=== PATIENT | female | born 1985 | race Hispanic/Latino ===

== ENCOUNTER 2022-02-23 00:02 | Emergency (ER) | payer MEDICAID ==
[~2022-02-23] VITALS: Ht 152.4 cm; Wt 61.2 kg
[~2022-02-23 00:02] MED LIST: ERGO500093 PO; PANT40TA54 PO; TAMS-1 PO; TRAM50TA4 PO
[2022-02-23 00:50] VITALS: BP 132/83
[2022-02-23 00:56] LABS: APPEARANCE,URINE CLOUDY (CLEAR); BILIRUBIN,URINE Negative (NEGATIVE); COLOR,URINE Yellow (YELLOW); GLUCOSE, URINE (UA) Negative (NEGATIVE); KETONES,URINE Trace mg/dL (NEGATIVE); LEUKOCYTE ESTERASE ,URINE Large (NEGATIVE); NITRATE,URINE Positive (NEGATIVE); OCCULT BLOOD,URINE Moderate (NEGATIVE); PH,URINE 6.5 (5.0-8.0); PROTEIN,URINE POS 2+ mg/dL (NEGATIVE); UROBILINOGEN,URINE 0.2 mg/dL (0.2-1.0)
[2022-02-23 01:00] LABS: HCG,QUAL RESULT NEGATIVE (NEGATIVE)
[2022-02-23 01:07] LABS: BASOPHILS % (AUTO) 0.9 % (0.0-5.0); EOSINOPHILS % (AUTO) 2.6 % (0.0-8.0); HEMATOCRIT 37.3 % (36-48); LYMPHOCYTES % (AUTO) 31.6 % (21.0-51.0); MEAN CORPUSCULAR HEMOGLOBIN 26.3 pg (27.0-33.0); MEAN CORPUSCULAR VOLUME 79.9 fL (79-99); MONOCYTES % (AUTO) 5.3 % (3.0-13.0); NEUTROPHILS % (AUTO) 59.3 % (40.0-77.0); PLATELET COUNT (AUTO) 436 K/uL (130-400); RED BLOOD CELL COUNT(AUTO) 4.67 MIL/uL (4.00-5.50); RED CELL DISTRIBUTION WIDTH 16.4 % (11.0-15.5); WHITE BLOOD COUNT (AUTO) 11.4 K/uL (4.8-10.8)
[2022-02-23 01:09] LABS: BACTERIA,URINE Many /HPF (None Seen); MUCUS,URINE Few LPF (None Seen); STARCH,URINE Few /LPF (None Seen); WBC,URINE 51-100 /HPF (0-1)
[2022-02-23 01:15] LABS: CREATININE 0.7 mg/dL (0.5-1.5); POTASSIUM 3.5 mmol/L (3.5-5.1)
[2022-02-23] MEDS ORDERED: CEFTRIAXONE 1G VIAL IVP ONE (02:00)
[2022-02-23] MEDS ORDERED: CEPH500B PO (02:06)
[2022-02-23] MEDS ORDERED: TRAM50TA4 PO (02:06)
== END 2022-02-23 02:48 | disposition home or self-care (01) ==
LOC: EDH 00:02
DX: N39.0 Urinary tract infection, site not specified (principal); Z79.899 Other long term (current) drug therapy; Z98.890 Other specified postprocedural states
CPT/HCPCS: 36415; 80048; 81001; 81025; 85025; 87077; 87088; 87186; 96374; 99283; J0696

== ENCOUNTER 2022-03-05 09:19 | Day surgery (SDC) | payer MEDICAID ==
[~2022-03-05 09:19] MED LIST changes: +CEPH500B PO
[2022-03-05] MEDS ORDERED: IOHEXOL-350 50ML VIAL IV ONE (09:27)
== END 2022-03-05 14:00 | disposition home or self-care (01) ==
LOC: RAH 09:19 → DAH 14:00
PROVIDERS: ATTEND Urology
DX: N13.0 Hydronephrosis with ureteropelvic junction obstruction (principal); Z79.01 Long term (current) use of anticoagulants; Z98.890 Other specified postprocedural states
CPT/HCPCS: 36415; 50431; 71045; 80053; 81001; 84703; 85027; 85610; 85730; 87077; 87088; 87186; 87635; 93005; C9803; Q9967; 74425

== ENCOUNTER → 2023-08-24 | Outpatient (CLI) | payer MEDICAID ==
[~2023-08-24] VITALS: Ht 152.4 cm; Wt 67.8 kg
[2023-08-24 12:58] VITALS: BP 146/89; PULSE 61; RESP 14
== END | disposition home or self-care (01) ==
LOC: DAH 10:00 → EDSTATUS 08-29 10:00
PROVIDERS: ATTEND Surgery
DX: L94.0 Localized scleroderma [morphea] (principal)
CPT/HCPCS: 81025; A6260

== ENCOUNTER 2023-09-19 07:33 | Day surgery (SDC) | payer MEDICAID ==
[2023-09-15 13:16] VITALS: BP 150/84; PULSE 71; RESP 15
[~2023-09-19] VITALS: Ht 152.4 cm; Wt 67.2 kg
[2023-09-19] VITALS (16 sets, daily range): BP systolic 94–156; BP diastolic 51–96; PULSE 56–107; RESP 9–18
[2023-09-19] MEDS ORDERED: LACTATED RINGERS 1000ML 1,000 ML IV ONE (07:58)
[2023-09-19] MEDS ORDERED: PROPOFOL 10 MG/ML 20ML VIAL IV ONE (08:13)
[2023-09-19] MEDS ORDERED: LIDOCAINE HCL MPF 1% 5ML VIAL ONE (08:13)
[2023-09-19] MEDS ORDERED: MIDAZOLAM HCL 1 MG/ML 2ML VIAL ONE (08:14)
[2023-09-19] MEDS ORDERED: FENTANYL CITRATE PF 50 MCG/1 ML 2ML VIAL ONE (08:14)
[2023-09-19] MEDS ORDERED: ONDANSETRON 4MG INJ ONE (08:14)
[2023-09-19] MEDS: CEFAZOLIN SODIUM 2 GM VIAL ONE ×2 (08:16→08:33)
[2023-09-19] MEDS ORDERED: BUPIVACAINE/PF 0.25% 30ML VIAL IJ ONE (08:43)
[2023-09-19] MEDS ORDERED: DEXAMETHASONE SOD PHOSPHATE 4 MG/ML 1ML VIAL ONE (08:49)
[2023-09-19] MEDS ORDERED: KETOROLAC 30MG VIAL (30MG/ML) ONE (08:58)
[2023-09-19] MEDS ORDERED: GLYCOPYRROLATE 1 MG/5 ML SYRINGE ONE (09:00)
== END 2023-09-19 10:45 | disposition home or self-care (01) ==
LOC: DAH 07:33
PROVIDERS: ATTEND Surgery
DX: L98.8 Other specified disorders of the skin and subcutaneous tissue (principal); L72.0 Epidermal cyst; D64.9 Anemia, unspecified; Z82.49 Family history of ischemic heart disease and other diseases of the circulatory system; Z83.3 Family history of diabetes mellitus; F12.90 Cannabis use, unspecified, uncomplicated; Z98.890 Other specified postprocedural states
CPT/HCPCS: 84703; 36415; 11404; 81025; 88304; A6260; J1100; A4663; J7120 ×2; A6266; A4452; J3010; J3490 ×3; J0665; J2250; J2405; J1885; J0690; A4215; A4223; A4222; A4221; J2704